=== PATIENT | female | born 1985 | race Asian ===

== ENCOUNTER 2016-10-07 00:01 | Inpatient (IN) | payer OTHER ==
[~2016-10-07] VITALS: Ht 165.1 cm; Wt 65.3 kg
[~2016-10-07 00:01] MED LIST: IBUP-974 PO; PREN-385 PO
[2016-10-07] MEDS ORDERED: OXYTOCIN 10 UNITS/ML VIAL IM SCH (00:40)
[2016-10-07] MEDS ORDERED: PROMETHAZINE 25 MG/ML VIAL IVP PRN (00:40)
[2016-10-07] MEDS ORDERED: MISOPROSTOL 25 MCG TAB VG PRN (00:40)
[2016-10-07] MEDS ORDERED: OXYTOCIN 20 UNITS/LR PREMIX 1,000 ML IV SCH (00:40)
[2016-10-07] MEDS ORDERED: METHYLERGONOVINE 0.2 MG/ML AMP IM PRN ×2 (00:40→11:30)
[2016-10-07] MEDS ORDERED: NALBUPHINE HYDROCHLORIDE 10 MG/ML VIAL IVP PRN (00:40)
[2016-10-07 00:42] VITALS: BP 96/58
[2016-10-07 01:29] LABS: BASOPHILS % (AUTO) 0.5 % (0.0-2.0); EOSINOPHILS # (AUTO) 0.2 K/uL (0-0.4); EOSINOPHILS % (AUTO) 2.5 % (0.0-4.0); HEMOGLOBIN 12.5 g/dL (12.0-16.0); LYMPHOCYTES # (AUTO) 1.6 K/uL (2.5-16.5); LYMPHOCYTES % (AUTO) 17.8 % (20.5-51.1); MEAN CORPUSCULAR HEMOGLOBIN 31 pg (27-31); MEAN CORPUSCULAR HGB CONC 34 g/dL (33-37); MEAN CORPUSCULAR VOLUME 92 fL (80-94); MONOCYTES # (AUTO) 0.7 K/uL (0.8-1.0); MONOCYTES % (AUTO) 7.3 % (1.7-9.3); NEUTROPHILS # (AUTO) 6.5 K/uL (1.8-7.7); NEUTROPHILS % (AUTO) 71.9 % (42.2-75.2); PLATELET COUNT (AUTO) 221 K/uL (140-450); RED BLOOD CELL COUNT(AUTO) 4.01 MIL/uL (4.20-5.40); RED CELL DISTRIBUTION WIDTH 13.6 % (11.6-13.7)
[2016-10-07 01:31] LABS: APPEARANCE,URINE SLIGHTLY HAZY (CLEAR); BILIRUBIN,URINE NEGATIVE (NEGATIVE); BLOOD, URINE NEGATIVE (NEGATIVE); COLOR,URINE YELLOW (YELLOW); LEUKOCYTE ESTERASE ,URINE NEGATIVE (NEGATIVE); NITRITE, URINE NEGATIVE (NEGATIVE); PROTEIN,URINE NEGATIVE (NEGATIVE); UGLUCOSE 2+ (NEGATIVE); UROBILINOGEN,URINE 0.2 EU/dL (0.2 - 1)
[2016-10-07 01:37] LABS: RBC,URINE 0-5 /HPF (0-5)
[2016-10-07 01:38] LABS: BACTERIA,URINE RARE /HPF (None Seen); MUCUS,URINE 3+ /LPF (None Seen)
[2016-10-07 01:46] LABS: ALBUMIN 2.7 g/dL (3.4-5.0); ANION GAP 13.5 (8-16); CALCIUM 8.4 mg/dL (8.5-10.1); CARBON DIOXIDE 22.9 mmol/L (21-32); CREATININE 0.5 mg/dL (0.6-1.3); POTASSIUM 3.4 mmol/L (3.5-5.1); TOTAL BILIRUBIN 0.2 mg/dL (0.0-1.0); TOTAL PROTEIN, SERUM 6.8 g/dL (6.4-8.2)
[2016-10-07] MEDS ORDERED: MISOPROSTOL 25 MCG TAB ONE (02:13)
[2016-10-07] MEDS: LACTATED RINGERS 1,000 ML IV SCH ×2 (02:29→07:16)
[2016-10-07] MEDS ORDERED: PREN-546 PO (03:08)
[2016-10-07] MEDS ORDERED: NOVR SUBQ (03:08)
[2016-10-07] MEDS ORDERED: OXYTOCIN 20 UNITS/LR PREMIX 1,000 ML IV ONE (06:49)
[2016-10-07] MEDS ORDERED: ROPIVACAINE 0.2%/NS PREMIX 250 ML EPI ONE (07:07)
[2016-10-07] MEDS ORDERED: ROPIVACAINE 0.2%/NS PREMIX 250 ML EPI SCH (07:15)
[2016-10-07] MEDS ORDERED: OXYTOCIN 10 UNITS/ML VIAL ONE (08:34)
--- NOTE | 2016-10-07 11:20 | NUR ---
PATIENT HAS BEEN SCREENED AND CATEGORIZED LOW NUTRITION RISK. PATIENT WILL BE SEEN WITHIN 7 DAYS OF ADMISSION. 10/12/[address]
[2016-10-07] MEDS ORDERED: OXYTOCIN 10 UNITS/ML VIAL IM PRN (11:30)
[2016-10-07] MEDS ORDERED: BENZOCAINE/MENTHOL 20%-0.5% 60 GM CAN TP PRN (11:30)
[2016-10-07] MEDS ORDERED: WITCH HAZEL 40 PAD PACKAGE TP PRN (11:30)
[2016-10-07] MEDS ORDERED: oxyCODONE/APAP 5/325 MG 1 TAB TAB PO PRN (11:30)
[2016-10-07] MEDS: HYDROcodone/APAP 5/325 MG 1 TAB TAB PO PRN (20:24)
[2016-10-07] MEDS ORDERED: INSULIN HUMAN NPH 100 UNITS/ML VIAL SUBQ PRN (21:00)
[2016-10-07] MEDS ORDERED: DOCUSATE SOD/SENNA 50/8.6 MG 1 TAB PO SCH (21:00)
[2016-10-08] MEDS: IBUPROFEN 800 MG TAB PO PRN (04:03)
[2016-10-08 07:25] LABS: HEMATOCRIT 38.3 % (36-48); HEMOGLOBIN 12.7 g/dL (12.0-16.0)
[2016-10-08] MEDS: HYDROcodone/APAP 5/325 MG 1 TAB TAB PO PRN ×2 (12:07→23:43)
[2016-10-08] MEDS ORDERED: ceFAZolin 1,000 MG VIAL ONE (22:05)
[2016-10-09] MEDS: IBUPROFEN 800 MG TAB PO PRN (10:10)
[2016-10-09] MEDS ORDERED: OXYTOCIN 10 UNITS/ML VIAL ONE (12:55)
--- NOTE | 2016-10-11 12:23 | NUR ---
CLINICAL INFORMATION REQUESTED FAXED TO [facility] [phone] PHONE [facility] [phone]
== END 2016-10-09 10:36 | disposition home or self-care (01) | DRG 560 ==
LOC: MLD 00:01 → MFCC 11:15
PROVIDERS: ADMIT Obstetrics & Gynecology; ATTEND Obstetrics & Gynecology
PROC: 10E0XZZ Delivery of Products of Conception, External Approach (ICD-10-PCS; principal; 2016-10-07)
PROC: 10907ZC Drainage of Amniotic Fluid, Therapeutic from Products of Conception, Via Natural or Artificial Opening (ICD-10-PCS; 2016-10-07)
PROC: 0KQM0ZZ Repair Perineum Muscle, Open Approach (ICD-10-PCS; 2016-10-07)
PROC: 00HU33Z Insertion of Infusion Device into Spinal Canal, Percutaneous Approach (ICD-10-PCS; 2016-10-07)
PROC: 3E0R3CZ (ICD-10-PCS; 2016-10-07)
PROC: 3E0234Z Introduction of Serum, Toxoid and Vaccine into Muscle, Percutaneous Approach (ICD-10-PCS; 2016-10-07)
DX: O24.429 Gestational diabetes mellitus in childbirth, unspecified control (principal); O36.63X0 Maternal care for excessive fetal growth, third trimester, not applicable or unspecified; Z37.0 Single live birth; Z3A.39 39 weeks gestation of pregnancy; O70.1 Second degree perineal laceration during delivery; Z23 Encounter for immunization
CPT/HCPCS: 36415; 51702; 80053; 81001; 82947; 82948; 85018; 85025; 86592; 86886; 86900; 86901; 90715; J0690; J1815; J2590; J2795; J7120